=== PATIENT | male | born 1960 | race Hispanic/Latino ===

== ENCOUNTER 2018-11-20 07:30 | Observation (INO) | payer SELFPAY ==
[~2018-11-20] VITALS: Ht 170.2 cm; Wt 77.1 kg
--- NOTE | 2018-11-20 07:32 | NUR ---
20g rt ac x one, ekg done
--- NOTE | 2018-11-20 07:34 | NUR ---
to ct stat via w/c
--- NOTE | 2018-11-20 08:00 | Diagnostic Imaging Report ---
CT BRAIN WO HISTORY: Stroke COMPARISON: None. TECHNIQUE: Noncontrast axial scans were obtained from skull base to the vertex. Coronal and sagittal reconstructions obtained from the axial data. One or more of the following dose reduction techniques were used: Automated exposure control, adjustment of the mA and/or kV according to patient size, and/or utilization of iterative reconstruction technique. DISCUSSION: Scalp/Skull: Unremarkable. Brain sulci: Appropriate for patient's age. Ventricles: Normal in size and configuration. No hydrocephalus. Extra-axial spaces: No masses or fluid collections. Parenchyma: Mild periventricular white matter hypodensities are likely chronic microvascular ischemic changes. There is a punctate calcification in the right centrum semiovale. Otherwise, no mass, hemorrhage, or large vascular territory acute infarct. Dural sinuses: No abnormal densities. Sellar/Suprasellar region: Intact. Skull base: Intact. Incidental findings: Bilateral ethmoid air cell mucosal thickening is partially visualized. IMPRESSION: 1. No acute intracranial abnormalities. 2. Mild supratentorial chronic microvascular ischemic change. 3. Punctate right centrum semiovale calcification may be from remote infection or inflammation (i.e. neurocysticercosis). Signed by: Dr. Antony Benavides M.D. on 11/20/2018 7:56 AM
--- NOTE | 2018-11-20 08:01 | NUR ---
AFTER SPEAKING FURTHER WITH SON, PATIENT HAS HAD A STEADY DECLINE OVER PAST FEW MONTHS. SON WORKS OUT OF TOWN, 2 MONTHS AGO, HE NOTICED HIS DAD "WASN'T ALL THERE." SON STATES PATIENT LIVES WITH SISTER. PER SON, YESTERDAY, AFTER COMING BACK INTO TOWN, PATIENT WAS FOUND DOWN FOR UNKNOWN TIME. SON STATES HE ASKED HIS DAD (PATIENT) TO COME ER, HE REFUSED. THIS MORNING, HE STATES PATIENT WAS STARING AT HIM, BLANK, SO HE BROUGHT HIM IN FOR FURTHER EVALUATION.
[2018-11-20 08:14] LABS: INR 1.06; PROTHROMBIN TIME 14.3 seconds (11.9-14.5)
[2018-11-20 08:15] LABS: PARTIAL THROMBOPLASTIN TIME 31.7 seconds (23.8-35.5)
[2018-11-20 08:19] LABS: BASOPHILS % 0.4 % (0.0-1.0); EOSINOPHILS # (AUTO) 0.5 (0.0-0.4); EOSINOPHILS % 5.2 % (0.0-6.0); HEMATOCRIT 47.7 % (38.2-49.6); HEMOGLOBIN 14.9 g/dL (14.0-18.0); LYMPHOCYTES % 32.2 % (18.0-39.1); MEAN CORPUSCULAR HEMOGLOBIN 28.4 pg (28-32); MEAN CORPUSCULAR HGB CONC 31.2 g/dL (31-35); MEAN CORPUSCULAR VOLUME 90.9 fL (81-99); MONOCYTES # (AUTO) 0.9 (0.2-0.8); MONOCYTES % 9.3 % (4.4-11.3); NEUTROPHILS # (AUTO) 4.8 (2.1-6.9); NEUTROPHILS % 52.6 % (38.7-80.0); PLATELET COUNT 235 x10e3/uL (140-360); RED BLOOD COUNT 5.25 x10e6/uL (4.3-5.7); RED CELL DISTRIBUTION WIDTH 13.6 % (11.7-14.4)
[2018-11-20 08:24] LABS: ALANINE AMINOTRANSFERASE 43 IU/L (0-55); ALBUMIN 4.2 g/dL (3.5-5.0); ALBUMIN/GLOBULIN RATIO 1.4 (0.8-2.0); ALKALINE PHOSPHATASE 80 IU/L (40-150); ANION GAP 12.8 mmol/L (8-16); BLOOD UREA NITROGEN 21 mg/dL (7-26); BUN/CREATININE RATIO 24 (6-25); CALCIUM 9.4 mg/dL (8.4-10.2); CARBON DIOXIDE 25 mmol/L (22-29); CHLORIDE 105 mmol/L (98-107); CREATINE KINASE 996 IU/L (30-200); CREATININE, SERUM 0.86 mg/dL (0.72-1.25); EST GLOMERULAR FILTRATION RATE > 60 ML/MIN (60-); GLUCOSE 99 mg/dL (74-118); POTASSIUM 3.8 mmol/L (3.5-5.1); SODIUM 139 mmol/L (136-145)
--- NOTE | 2018-11-20 08:24 | NUR ---
cta brain to ct for testing
--- NOTE | 2018-11-20 09:45 | Diagnostic Imaging Report ---
CTA BRAIN HISTORY: Stroke COMPARISON: Head CT 11/20/2018 TECHNIQUE: CTA of the head was performed with intravenous iodine based contrast. Coronal, sagittal, and 3-D reformations were created. One or more of the following dose reduction techniques were used: Automated exposure control, adjustment of the mA and/or kV according to patient size, and/or utilization of iterative reconstruction technique. DISCUSSION: Carotid arteries: The intracranial internal carotid arteries are patent and without abnormality. No abnormalities in the A1 or M1 segments. Vertebrobasilar Circulation: Right vertebral artery: Patent, no abnormalities. Left vertebral artery: Patent, no abnormalities. Basilar artery: Patent, no abnormalities. Posterior cerebral arteries: Patent, no abnormalities. Normal Variants: ACom: Patent. PComs: Not clearly visualized. Vertebral arteries: Co-dominant. The major dural venous sinuses are grossly patent. Additional findings: Mild to moderate scattered bilateral paranasal sinus mucosal thickening. IMPRESSION: No intracranial CTA abnormalities. Signed by: Dr. Antony Benavides M.D. on 11/20/2018 9:34 AM
--- OUTSIDE RECORDS SUMMARY | 2018-11-20 09:48 | XMS REPORT ---
Author Author Admin, [place] Organization [facility] Address [address] [place] [address] Phone Allergies, Adverse Reactions, Alerts Allergy Name Reaction Description Start Date Severity Status Provider No Known Allergies Khushi Jasso CMA Conditions or Problems Problem Name Problem Code Onset Date Status Entry Date Provider Comment Standard Description Annotate Abnormal gait 781.2 Active Alejandro Jasso MD Abnormality of gait Hypothyroidism 244.9 Active Alejandro Jasso MD Unspecified hypothyroidism Prediabetes 790.29 Active Alejandro Jasso MD Other abnormal glucose Annual exam V70.0 Active Alejandro Jasso MD Routine general medical examination at a health care facility Elevated blood-pressure reading, without diagnosis of hypertension 796.2 Active Alejandro Jasso MD Elevated blood pressure reading without diagnosis of hypertension Nocturia 788.43 Active Alejandro Jasso MD Nocturia Vaccination Against Influenza V04.81 Inactive Alejandro Jasso MD Need for prophylactic vaccination and inoculation against influenza Vaccination Against Influenza ICD-V04.81 Inactive Alejandro Jasso MD Medication List Medication Instructions Start Date Stop Date Generic Name NDC Status Provider Patient Instruction DOXAZOSIN MESYLATE 4 MG ORAL TABLET take one tab By Mouth Every Day DOXAZOSIN MESYLATE 87704521683 Active Alejandro Jasso MD Active LEVOTHYROXINE SODIUM 100 MCG ORAL TABLET 1 by mouth daily LEVOTHYROXINE SODIUM 72145556366 Active Alejandro Jasso MD Active Immunizations Vaccine Administration Date Value Standard Description influenza immunization (Flu Vax) has been administered given influenza virus vaccine, unspecified formulation Vital Signs Date Name Value Unit Range Description blood pressure, diastolic 84 mm[Hg] BP vasquez blood pressure, systolic 136 mm[Hg] BP sys height E&M 64 [in_us] Bdy height pulse rate E&M 98 /min Heart rate respiratory rate E&M 20 /min Resp rate temperature E&M 98 [degF] Body temperature weight E&M 185 [lb_av] Weight Measured blood pressure, diastolic 77 mm[Hg] BP vasquez blood pressure, systolic 118 mm[Hg] BP sys height E&M 64 [in_us] Bdy height pulse rate E&M 97 /min Heart rate respiratory rate E&M 18 /min Resp rate temperature E&M 97.9 [degF] Body temperature weight E&M 189.60 [lb_av] Weight Measured blood pressure, diastolic 94 mm[Hg] BP vasquez blood pressure, systolic 137 mm[Hg] BP sys height E&M 64 [in_us] Bdy height pulse rate E&M 93 /min Heart rate respiratory rate E&M 16 /min Resp rate temperature E&M 98.5 [degF] Body temperature weight E&M 187.50 [lb_av] Weight Measured Diagnostic Results Date Name Value Unit Range Description Lab Report: TSH - Chemistry thyroid stimulating hormone, serum 0.873 u[iU]/mL 0.450-4.500 Lab Report: CBC With Differential/Platelet, Comp. Metabolic Panel (14), ... - Chemistry very low density lipoproteins 24 mg/dL 5-40 chloride, serum 100 mmol/L 96-106 urea nitrogen, blood 26 mg/dL 6-24 Lab Report: CBC With Differential/Platelet, Comp. Metabolic Panel (14), ... - Urinalysis leukocyte esterase, urine, by dipstick Negative Negative Lab Report: CBC With Differential/Platelet, Comp. Metabolic Panel (14), ... - Hematology mean corpuscular hemoglobin concentration, RBC 32.6 G/DL % 31.5-35.7 erythrocyte (RBC) count 5.11 X10E6/UL 10*6/mm3 4.14-5.80 Lab Report: CBC With Differential/Platelet, Comp. Metabolic Panel (14), ... - Urinalysis urine color Yellow Yellow Lab Report: CBC With Differential/Platelet, Comp. Metabolic Panel (14), ... - Chemistry Absolute Neutrophils 5.4 X10E3/UL 10*3/uL 1.4-7.0 Lab Report: CBC With Differential/Platelet, Comp. Metabolic Panel (14), ... - Urinalysis bilirubin, urine Negative Negative Lab Report: CBC With Differential/Platelet, Comp. Metabolic Panel (14), ... - Chemistry LDL cholesterol, serum 134 mg/dL 0-99 urea nitrogen/creatinine ratio, serum 29 9-20 Lab Report: CBC With Differential/Platelet, Comp. Metabolic Panel (14), ... - Hematology mean corpuscular volume, RBC 91 fL 79-97 Lab Report: CBC With Differential/Platelet, Comp. Metabolic Panel (14), ... - Chemistry HDL cholesterol, serum 50 mg/dL >39 Lab Report: CBC With Differential/Platelet, Comp. Metabolic Panel (14), ... - Hematology monocytes as percent of blood leukocytes 8 % Not Estab. Lab Report: CBC With Differential/Platelet, Comp. Metabolic Panel (14), ... - Chemistry albumin/globulin ratio, serum 1.8 1.2-2.2 creatinine, serum 0.90 mg/dL 0.76-1.27 cholesterol, serum 208 mg/dL 422-149 9979/11/01 bilirubin, serum, total 0.3 mg/dL 0.0-1.2 Lab Report: CBC With Differential/Platelet, Comp. Metabolic Panel (14), ... - Hematology Eosinophil Absolute Count 0.3 X10E3/UL 10*3/uL 0.0-0.4 Lab Report: CBC With Differential/Platelet, Comp. Metabolic Panel (14), ... - Urinalysis appearance, urine Clear Clear Lab Report: CBC With Differential/Platelet, Comp. Metabolic Panel (14), ... - Chemistry aspartate aminotransferase (SGOT), serum 30 U/L 0-40 B-12, serum 925 pg/mL 232-1245 Lab Report: CBC With Differential/Platelet, Comp. Metabolic Panel (14), ... - Hematology red blood cell distribution width 13.9 % 12.3-15.4 Lab Report: CBC With Differential/Platelet, Comp. Metabolic Panel (14), ... - Urinalysis urinalysis, microscopic examination MICNIP Lab Report: CBC With Differential/Platelet, Comp. Metabolic Panel (14), ... - Hematology leukocyte count, blood 8.6 X10E3/UL 10*3/mm3 3.4-10.8 Lab Report: CBC With Differential/Platelet, Comp. Metabolic Panel (14), ... - Urinalysis pH, urine, semiquantitative 5.5 5.0-7.5 Lab Report: CBC With Differential/Platelet, Comp. Metabolic Panel (14), ... - Chemistry potassium, serum 4.2 mmol/L 3.5-5.2 albumin, serum 4.6 g/dL 3.5-5.5 immature granulocytes, percentage of total cells, blood 0 % Not Estab. Lab Report: CBC With Differential/Platelet, Comp. Metabolic Panel (14), ... - Hematology lymphocyte count, blood, automated 2.2 X10E3/UL 10*3/mm3 0.7-3.1 hematocrit, blood 46.6 % 37.5-51.0 Lab Report: CBC With Differential/Platelet, Comp. Metabolic Panel (14), ... - Chemistry sodium, serum 144 mmol/L 134-144 Lab Report: CBC With Differential/Platelet, Comp. Metabolic Panel (14), ... - Hematology neutrophils as percent of blood leukocytes 63 % Not Estab. basophils as percent of blood leukocytes 0 % Not Estab. Lab Report: CBC With Differential/Platelet, Comp. Metabolic Panel (14), ... - Chemistry folate, serum >19.9 ng/mL ng/mL >3.0 specific gravity, body fluid 1.029 1.005-1.030 Lab Report: CBC With Differential/Platelet, Comp. Metabolic Panel (14), ... - Urinalysis protein, urine, semiquantitative (dipstick) Trace Negative/Trace Lab Report: CBC With Differential/Platelet, Comp. Metabolic Panel (14), ... - Chemistry carbon dioxide, venous blood 25 mmol/L 20-29 nitrate, urine Negative Negative triglyceride, serum, fasting 120 mg/dL 0-149 calcium, serum 9.7 mg/dL 8.7-10.2 alanine aminotransferase (SGPT), serum 49 U/L 0-44 Lab Report: CBC With Differential/Platelet, Comp. Metabolic Panel (14), ... - Hematology mean corpuscular hemoglobin, RBC 29.7 pg 26.6-33.0 Lab Report: CBC With Differential/Platelet, Comp. Metabolic Panel (14), ... - Chemistry protein, total, serum 7.1 g/dL 6.0-8.5 alkaline phosphatase, serum 81 U/L 39-117 Lab Report: CBC With Differential/Platelet, Comp. Metabolic Panel (14), ... - Hematology hemoglobin, blood 15.2 g/dL 13.0-17.7 lymphocytes as percent of blood leukocytes 26 % Not Estab. Office Visit: Annual / Family Planning Male - Chemistry hemoglobin A1C, blood, as % of total hemoglobin 5.8 % Lab Report: CBC With Differential/Platelet, Comp. Metabolic Panel (14), ... - Urinalysis glucose, urine, semiquantitative Negative Negative Lab Report: CBC With Differential/Platelet, Comp. Metabolic Panel (14), ... - Genetics/fertility eGFR if 108 mL/min/1.73m2 >59 Lab Report: CBC With Differential/Platelet, Comp. Metabolic Panel (14), ... - Hematology basophil count, absolute 0.0 x10E3/uL 0.0-0.2 Lab Report: CBC With Differential/Platelet, Comp. Metabolic Panel (14), ... - Chemistry globulin, serum 2.5 1.5-4.5 Estimated Glomerular Filtration Rate (calc) 93 mL/min/1.73m2 >59 Lab Report: CBC With Differential/Platelet, Comp. Metabolic Panel (14), ... - Basic Occult Blood, urine Negative Negative Lab Report: CBC With Differential/Platelet, Comp. Metabolic Panel (14), ... - Hematology eosinophils as percent of blood leukocytes 3 % Not Estab. Lab Report: CBC With Differential/Platelet, Comp. Metabolic Panel (14), ... - Chemistry blood glucose, random 103 mg/dL 65-99 Lab Report: CBC With Differential/Platelet, Comp. Metabolic Panel (14), ... - Urinalysis urobilinogen, urine, semiquantitative (dipstick) 0.2 0.2-1.0 Lab Report: PSA, Serum (Serial Monitor) - Chemistry prostate specific antigen 0.8 ng/mL 0.0-4.0 Lab Report: CBC With Differential/Platelet, Comp. Metabolic Panel (14), ... - Hematology monocyte count, blood, automated 0.7 X10E3/UL 10*3/uL 0.1-0.9 platelet count 229 X10E3/UL 10*3/mm3 150-379 Lab Report: CBC With Differential/Platelet, Comp. Metabolic Panel (14), ... 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
--- OUTSIDE RECORDS SUMMARY | 2018-11-20 09:48 | XMS REPORT ---
Author Author [facility] Address Unknown Phone Unavailable Care Team Providers Care Generation Manager Name Role Phone Kira MONTERROSO Unavailable Unavailable Problems This patient has no known problems. Allergies, Adverse Reactions, Alerts This patient has no known allergies or adverse reactions. Medications This patient has no known medications. Results Test Description Test Time Test Comments Text Results Atomic Results Result Comments CTA BRAIN 2018-11-20 09:27:00 [place] [address] Patient Name: BELKYS AMARAL MR #: [id number] : 1960 Age/Sex: 58/M Req #: [id number] Adm Physician: Ordered by: CARMINE MONTERROSO MD Report #: [id number] Location: ER Room/Bed: Procedure: [id number] CT/CTA BRAIN Exam Date: Exam Time: REPORT STATUS: Signed CTA BRAIN HISTORY: Stroke COMPARISON: Head CT 11/20/2018 TECHNIQUE: CTA of the head was performed with intravenous iodine based contrast. Coronal, sagittal, and 3-D reformations were created. One or more of the following dose reduction techniques were used: Automated exposure control, adjustment of the mA and/or kV according to patient size, and/or utilization of iterative reconstruction technique. DISCUSSION: Carotid arteries: The intracranial internal carotid arteries are patent and without abnormality. No abnormalities in the A1 or M1 segments. Vertebrobasilar Circulation: Right vertebral artery: Patent, no abnormalit ies. Left vertebral artery: Patent, no abnormalities. Basilar artery: Patent, no abnormalities. Posterior cerebral arteries: Patent, no abnormalities. Normal Variants: ACom: Patent. PComs: Not clearly visualized. Vertebral arteries: Co-dominant. The major dural venous sinuses are grossly patent. Additional findings: Mild to moderate scattered bilateral paranasal sinus mucosal thickening. IMPRESSION: No intracranial CTA abnormalities. Signed by: Dr. Antony Padron M.D. on 11/20/2018 9:34 AM Dictated By: ANTONY PADRON MD 3 Transcribed By: KELLIE on 11/20/18933 COPY TO: CARMINE MONTERROSO MD CT BRAIN WO 2018-11-20 07:53:00 [place] [address] Patient Name: BELKYS AMARAL MR #: [id number] : 1960 Age/Sex: 58/M Req #: [id number] Adm Physician: Ordered by: CARMINE MONTERROSO MD Report #: [id number] Location: Room/Bed: Procedure: [id number] CT/CT BRAIN WO Exam Date: 11/20/18 Exam Time: 729 REPORT STATUS: Signed CT BRAIN WO HISTORY: Stroke COMPARISON: None. TECHNIQUE: Noncontrast axial scans were obtained from skull base to the vertex. Coronal and sagittal reconstructions obtained from the axial data. One or more of the following dose reduction techniques were used: Automated exposure control, adjustment of the mA and/or kV according to patient size, and/or utilization of iterative reconstruction technique. DISCUSSION: Scalp/Skull: Unremarkable. Brain sulci: Appropriate for patient's age. Ventricles: Normal in size and configuration. No hydrocephalus. Extra-axial spaces: No masses or fluid collections. Parenchyma: Mild periventricular white matter hypodensities are likely chronic microvascular ischemic changes. There is a punctate calcification in the right centrum semiovale. Otherwise, no mass, hemorrhage, or large vascular territory acute infarct. Dural sinuses: No abnormal densities. Sellar/Suprasellar region: Intact. Skull base: Intact. Incidental findings: Bilateral ethmoid air cell mucosal thickening is partially visualized. IMPRESSION: 1. No acute intracranial abnormalities. 2. Mild supratentorial chronic microvascular ischemic change. 3. Punctate right centrum semiovale calcification may be from remote infection or inflammation (i.e. neurocysticercosis). Signed by: Dr. Antony Padron M.D. on 11/20/2018 7:56 AM Dictated By: ANTONY PADRON MD [id number] Transcribed By: KELLIE on 11/20/18 0756 COPY TO: CARMINE MONTERROSO MD
[2018-11-20 10:14] LABS: BILIRUBIN,URINE NEGATIVE (NEGATIVE); CLARITY,URINE CLEAR (CLEAR); COLOR,URINE YELLOW (YELLOW); KETONES,URINE NEGATIVE (NEGATIVE); LEUKOCYTE ESTERASE ,URINE NEGATIVE (NEGATIVE); NITRITE,URINE NEGATIVE (NEGATIVE); PROTEIN,URINE DIPSTICK NEGATIVE (NEGATIVE); URINE UROBILINOGEN 0.2 mg/dL (0.2 - 1)
[2018-11-20 10:35] LABS: EPITHELIAL CELLS,URINE RARE /LPF; RENAL EPITHELIAL CELLS,URINE RARE
--- NOTE | 2018-11-20 10:50 | NUR ---
PER MD CAROTID DOPPLER DONE AND NEGATIVE
--- NOTE | 2018-11-20 11:09 | NUR ---
CALLED [employer] PER ER MD REQUEST.
--- NOTE | 2018-11-20 11:17 | NUR ---
sPOKE WITH SON AGAIN REGARDING PATIENT GAIT; SON STATES PATIENT GAIT IS MILDLY UNSTEADY DUE TO A CHRONIC "BREAK" IN THE PAST THAT PATIENT NEVER SEEKED MEDICAL ATTENTION. PATIENT ABLE TO AMBULATED WITH ASSISTANCE AND WAS ABLE TO AMBULATE FROM PARKING LOT UPON ARRIVAL TO ED.
[2018-11-20] MEDS ORDERED: IOPAMIDOL 370 MG/ML 200 ML INFUS..BTL INJ ONE (11:27)
[2018-11-20] MEDS ORDERED: SODIUM CHLORIDE 0.9% 100 ML 100 ML ONE (11:27)
--- NOTE | 2018-11-20 11:40 | NUR ---
SPOKE WITH FAMILY GAVE SELF PAY PACKET TO FOLLOW UP IN COMMUNITY, GAVE RESOURCES FOR [employer] TO FOLLOW UP TO SEE IF HE WILL BE ABLE TO GET ASSISTANCE WITH THE DISABILITY PROCESS. GAVE SENIOR RESOURCES FOR AVAILABLE COMPANIES THAT GIVE ASSISTANCE WITH DIFFERENT LEVELS OF CARE. CALLED JITENDRA WITH [facility] AND ALERTED TO PT PRESENCE IN ED TO SEE IF SHE CAN BE OF ASSISTANCE. SON AWARE OF THE OPPORTUNITIES AND WILL FOLLOW UP TO HELP HIS FATHER GET BENEFITS.
[2018-11-20] MEDS ORDERED: SODIUM CHLORIDE 0.9% 1000ML 1,000 ML IV STA (11:55)
[2018-11-20] MEDS ORDERED: ASPIRIN 81 MG CHEW TAB PO ONE (12:15)
--- NOTE | 2018-11-20 14:00 | NUR ---
RECEIVED TO RM AAXO2, DENIES PAIN, PT IS TAJIK SPEAKING ONLY, SON AT BEDSIDE ANSWERING QUESTIONS. IVF INFUSING TO L AC 20G NO SS OF INFILTRATION NOTED, EDEMA NOTED TO SCROTUM DENIES PAIN, NO OTHER CO VOICED, ORIENTED TO RM, CALL LIGHT IN REACH WILL CONTINUE TO MONITOR
[2018-11-20 14:50] VITALS: BP 131/77
--- NOTE | 2018-11-20 16:41 | Diagnostic Imaging Report ---
Exam: Lumbar spine AP lateral History: Back pain Comparison: None. Findings: No fracture or malalignment. Mild degenerative disc disease L5-S1. No abnormal soft tissue calcification or soft tissue defect. Impression: No acute osseous abnormality Signed by: Dr. Rey Jarquin M.D. on 11/20/2018 4:37 PM
--- NOTE | 2018-11-20 16:43 | Diagnostic Imaging Report ---
EXAMINATION: PA and lateral views of the chest. COMPARISON: None CLINICAL HISTORY: Fall DISCUSSION: Lines/tubes: None. Lungs: The lungs are well inflated and clear. No pneumonia or pulmonary edema. Pleura: No pleural effusion or pneumothorax. Heart and mediastinum: The cardiomediastinal silhouette is normal. Bones and soft tissues: No acute bony abnormalities. IMPRESSION: No acute cardiopulmonary abnormalities. Signed by: Dr. Rey Jarquin M.D. on 11/20/2018 4:40 PM
--- NOTE | 2018-11-20 17:00 | NUR ---
SPOKE WITH DR MILLER RE: PT CONSULT, MRI RESULTS GIVEN. INFORMED NURSE TO NOTIFY DR DUMONT, NO NEED TO SEE PT NO STROKE NOTED PER MRI. CAN SEE PT ON AN OUTPATIENT BASIS, DR DUMONT PAGED AWAITING CALL BACK
--- NOTE | 2018-11-20 17:04 | Diagnostic Imaging Report ---
PROCEDURE:TESTICULAR ULTRASOUND COMPARISON:None. INDICATIONS:ENLARGED TESTICLE TECHNIQUE: Mcintosh-scale and color Doppler images of the testicles and scrotal contents were obtained. Duplex imaging with spectral waveform analysis was performed of the testicular arteries and veins. FINDINGS: RIGHT SCROTUM: Testicle: Measures 3.3 x 1.3 x 2.6 cm. Normal blood flow to the right testes. Epididymal head: Measures 0.7 x 0.7 x 1.0 cm. Hydrocele: Small hydrocele. Varicocele: Small varicocele. LEFT SCROTUM: Testicle: Measures 4.8 x 2.7 x 3.0 cm. Normal blood flow to the left testes. Epididymal head: Measures 1.2 x 0.5 x 0.8 cm. Small epididymal cysts. Hydrocele: Small hydrocele present. Varicocele: None There is massive enlargement of the scrotum without discernible peristalsis likely represents a large hernia. CONCLUSION: 1. Normal appearing testes with blood flow present. 2. Small bilateral hydroceles. 3. Small right varicocele. 4. Massive scrotal enlargement. Michael Marcelino D.O. Dictated by: Michael Marcelino D.O. on 11/20/2018 at 17:07 Electronically approved by: Michael Marcelino D.O. on 11/20/2018 at 17:07
--- NOTE | 2018-11-20 17:06 | Diagnostic Imaging Report ---
EXAMINATION: CT of the abdomen and pelvis without contrast. TECHNIQUE: Helical CT images of the abdomen and pelvis were performed from the lung bases to the lesser trochanters. No intravenous contrast was given per renal stone protocol. Coronal and sagittal reformatted images were obtained.Dose modulation, iterative reconstruction, and/or weight based adjustment of the mA/kV was utilized to reduce the radiation dose to as low as reasonably achievable. COMPARISON: None. CLINICAL HISTORY:Dementia, weakness DISCUSSION: ABSENCE OF INTRAVENOUS CONTRAST DECREASES SENSITIVITY FOR DETECTION OF FOCAL LESIONS AND VASCULAR PATHOLOGY. ABDOMEN/PELVIS: LOWER THORAX: Unremarkable. HEPATOBILIARY:No focal hepatic lesions. No biliary ductal dilation. The gallbladder is normal. SPLEEN: No splenomegaly. PANCREAS: No focal masses or ductal dilatation. ADRENALS: No adrenal nodules. KIDNEYS/URETERS: No hydronephrosis, stones, or solid mass lesions. PELVIC ORGANS/BLADDER: The bladder is normal. PERITONEUM/RETROPERITONEUM: No free air or fluid. LYMPH NODES: No intra-abdominal,retroperitoneal, pelvic or inguinal lymphadenopathy. VESSELS: Unremarkable. GI TRACT: No obstruction. Appendix normal. BONES AND SOFT TISSUES: Fat-containing left inguinal hernia and colon containing right inguinal hernia. IMPRESSION: Large right colon containing internal hernia. No complication. Signed by: Dr. Rey Jarquin M.D. on 11/20/2018 5:03 PM
[2018-11-20 17:09] VITALS: BP 128/91
--- NOTE | 2018-11-20 17:23 | Diagnostic Imaging Report ---
Examination: Brain MRI without Contrast History: Dementia. Memory loss Comparison studies: None. Technique: Precontrast: Hi resolution Sag T1 with coronal and axial reformats. Axial DWI, T2, T2 flair, gradient echo or SWI Intravenous contrast: None. Findings: Structural lesions: No intra-or extra-axial masses. No hematomas. Atrophy: General: Symmetric and age appropriate. Focal: No disproportionate lobar, hippocampal, mesencephalic, pontine, or cerebellar atrophy. Mcintosh matter: Cortex:No signal abnormalities. No encephalomalacia. Basal ganglia: No atrophy or signal abnormalities. Thalami: No signal abnormalities. Micro hemorrhages: None. White matter signal intensity: There are scattered punctate areas of T2/FLAIR hyperintensity in the periventricular and subcortical white matter, nonspecific. Comparison Subarachnoid spaces: No signal abnormalities. Ventricles: Normal in size and configuration. No hydrocephalus. Hippocampi, fornix and mammillary bodies: Normal in size and symmetric. Other: Skull: No bone marrow abnormalities. Vessels: Expected flow voids present in the major arteries and dural sinuses.. Sella: Normal in size. No intra-or suprasellar abnormalities. Cranio-cervical junction: No abnormalities. Patent foramen magnum. No Chiari one malformation. Paranasal sinuses: Moderate inflammatory mucosal thickening of the bilateral maxillary sinuses and ethmoid air cells. IMPRESSION: 1. No disproportionate lobar volume loss or hippocampal atrophy. 2. Minimal chronic microvascular ischemic change. 3. No acute intracranial abnormality. Signed by: Dr. Shreya Joyner M.D. on 11/20/2018 5:20 PM
[2018-11-20 17:54] LABS: CREATINE KINASE MB 4.6 ng/mL (0-5.0)
--- NOTE | 2018-11-20 19:12 | NUR ---
WALKING ROUNDS PERFORMED, RECEIVED PT LAYING SEMI FOWLERS IN BED, AAOX2, RR EVEN AND NON-LABORED, ON RA. NO S/SX OF DISTRESS NOTED. LEFT PT LAYING SEMI FOWLERS IN BED, BED IN LOW LOCKED POSITION, SIDE RAILS UPX2, CALL LIGHT AND PHONE WITHIN REACH. FAMILY AT BEDSIDE.
[2018-11-20 20:00] VITALS: BP 125/93
[2018-11-20 20:01] VITALS: BP 125/93
[2018-11-20] MEDS: SODIUM CHLORIDE 0.9% 1000ML 1,000 ML IV SCH ×2 (21:18→22:50)
--- NOTE | 2018-11-20 22:14 | History and Physical ---
CHIEF COMPLAINT: Difficulty walking and fall. HISTORY OF PRESENT ILLNESS: A 58-year-old male, who had no medical history other than progressive dementia and left ankle problem. The patient basically came in because he was having problem with progressively worsening memory loss and also left-sided weakness. The patient's preliminary workup including the CTA of the brain and CT scan of the brain otherwise negative. The patient is otherwise stable. On examination, the patient does have an enlarged scrotal swelling. That is nontender. Per the patient, it has been going on for years. PAST MEDICAL HISTORY: Progressive memory loss, dementia. Left ankle injury remotely with progressive difficulty with walking and fall. SOCIAL HISTORY: The patient lives at home with his family. He does not smoke or use alcohol. No recreational drugs. ALLERGIES: NO KNOWN ALLERGIES. HOME MEDICATIONS: None. PHYSICAL EXAMINATION: VITAL SIGNS: Temperature is 98, blood pressure 114/70, pulse rate is 94, and respirations 18. GENERAL: The patient is not in acute distress. He is awake. HEENT: Normocephalic, atraumatic. Anicteric. NECK: Supple grossly. PULMONARY: Clear. CARDIOVASCULAR: Regular rate and rhythm. ABDOMEN: Soft. Scrotal swelling. EXTREMITIES: No cyanosis or edema. NEUROLOGIC: No focal deficits grossly on lying in bed. Gait is not assessed. LABORATORY DATA: Sodium is 139, potassium 3.8, chloride 105, bicarb 25, BUN 21, creatinine 0.8, and glucose 99. WBC is 9.1, hemoglobin 14.9, hematocrit 47.7, and platelets 235. IMPRESSION: 1. Difficulty walking with recurrent fall. This could be secondary to musculoskeletal in origin given the fact of his left ankle problem, but also the patient has dementia and therefore difficult to assess. 2. Severe scrotal swelling. 3. Progressively memory loss could be secondary to dementia. PLAN: Obtain MRI of the brain without contrast. Lumbar spine x-ray. PT/OT. Check thyroid function test. Continue to monitor the patient closely at this time. MD STACIE Finley/CATHERINE /[id number]
[2018-11-21] VITALS: BP 120/95
[2018-11-21 01:43] LABS: CREATINE KINASE 424 IU/L (30-200)
[2018-11-21 04:00] VITALS: BP 132/88
[2018-11-21 05:21] LABS: BASOPHILS % 0.5 % (0.0-1.0); EOSINOPHILS # (AUTO) 0.4 (0.0-0.4); EOSINOPHILS % 4.6 % (0.0-6.0); HEMATOCRIT 44.3 % (38.2-49.6); HEMOGLOBIN 14.4 g/dL (14.0-18.0); LYMPHOCYTES # (AUTO) 2.4 (1.0-3.2); LYMPHOCYTES % 29.7 % (18.0-39.1); MEAN CORPUSCULAR HGB CONC 32.5 g/dL (31-35); MEAN CORPUSCULAR VOLUME 89.1 fL (81-99); MONOCYTES # (AUTO) 0.9 (0.2-0.8); MONOCYTES % 10.8 % (4.4-11.3); NEUTROPHILS # (AUTO) 4.4 (2.1-6.9); NEUTROPHILS % 54.2 % (38.7-80.0); PLATELET COUNT 214 x10e3/uL (140-360); RED BLOOD COUNT 4.97 x10e6/uL (4.3-5.7); RED CELL DISTRIBUTION WIDTH 13.6 % (11.7-14.4)
[2018-11-21] MEDS: SODIUM CHLORIDE 0.9% 1000ML 1,000 ML IV SCH (05:34)
[2018-11-21 05:40] LABS: BLOOD UREA NITROGEN 13 mg/dL (7-26); BUN/CREATININE RATIO 15 (6-25); CALCIUM 9.1 mg/dL (8.4-10.2); CARBON DIOXIDE 27 mmol/L (22-29); CHLORIDE 109 mmol/L (98-107); CREATININE, SERUM 0.85 mg/dL (0.72-1.25); EST GLOMERULAR FILTRATION RATE > 60 ML/MIN (60-); GLUCOSE 93 mg/dL (74-118); SODIUM 141 mmol/L (136-145)
[2018-11-21 05:57] LABS: CREATINE KINASE 351 IU/L (30-200)
[2018-11-21 08:31] VITALS: BP 122/93
[2018-11-21 10:00] VITALS: BP 122/93
--- NOTE | 2018-11-21 10:17 | NUR ---
PER DR DUMONT CANMARIAJOSE ECHO, NO NEED FOR TEST AT THIS TIME
--- NOTE | 2018-11-22 01:14 | Discharge Summary ---
The patient was placed on observation. The patient is on unassigned call, assigned to my service. FINAL DIAGNOSES: 1. Baseline dementia. Workup, there is no acute injury to the brain. No stroke. 2. Chronic scrotal swelling. 3. Chronic large right colon containing inguinal hernia. No complication. 4. Baseline musculoskeletal problem of the left lower extremity and ankle area with baseline walking with a walker with recurrent fall. SUMMARY: This is a 58 years old male with dementia, came into the hospital because he had recurrent fall. Apparently, he has left ankle injury in the past and he is walking with a walker at home, but had recurrent fall due to the progressive decline of his left ankle. Because he is demented, not much history was able to obtain. Therefore, the patient was placed on observation and multiple workup was done. Carotid Doppler was otherwise unremarkable. The patient had other tests as well including as follow: Had abdominal pelvic CT, chest x-ray, brain MRI, head CTA, brain CT, Doppler study and testicular ultrasound and findings as mentioned. There was no acute finding on all those tests that was done. Discussed with the patient and family at length. The patient apparently was applied for a [employer] with [facility] [place], but because his spouse make too much money, he was not qualified. I advised the patient to follow up again with the [facility] to apply for a [employer] reapply for a visit with basis on income. Discussed with the patient and daughter at length in the room regarding his overall health status. Suggest that he need to follow up with his urologist and a general surgeon for a noncomplicated hernia and scrotal swelling. I also advised the patient's family, daughter particularly to take the patient for an outpatient neurology consultation for dementia workup. Overall, the patient is stable. There is no acute problem that will be take care of in the hospital at this time. I suggest the patient's family to obtain all medical records including extensive imaging tests that were already done. Therefore, no need to repeat. The patient is otherwise stable, discharged home today. No medication needed. MD STACIE Finley/CATHERINE /[id number]
== END 2018-11-21 10:55 | disposition home or self-care (01) ==
LOC: ER 07:30 → INTOOBSV 12:26 → ERHOLD 12:26 → MED/SURG 14:19
PROVIDERS: ADMIT Internal Medicine; ATTEND Internal Medicine
DX: G30.0 Alzheimer's disease with early onset (principal); F02.81 Dementia in other diseases classified elsewhere, unspecified severity, with behavioral disturbance; N50.89 Other specified disorders of the male genital organs; Z91.81 History of falling; K40.90 Unilateral inguinal hernia, without obstruction or gangrene, not specified as recurrent; S96.89 Other specified injury of other specified muscles and tendons at ankle and foot level
CPT/HCPCS: 36415; 70450; 70496; 70551; 71046; 72100; 74176; 76870; 80048; 80053; 81001; 82550 ×2; 82553 ×2; 82948; 83880; 84484 ×2; 85025 ×2; 85610; 85730; 93005; 93880; 93976; 97116; 97161; 99284; G0378 ×2; J7030 ×2; Q9967

== ENCOUNTER 2021-12-15 22:00 | Inpatient (IN) | payer MEDICAID ==
[~2021-12-15] VITALS: Ht 160 cm; Wt 43.1 kg
[2021-12-15] MEDS ORDERED: SODIUM CHLORIDE 0.9% 1000ML 1,000 ML IV STA ×2 (22:28→22:48)
[2021-12-15] MEDS ORDERED: ACETAMINOPHEN 1000 MG/100 ML IV STA (22:48)
[2021-12-15 23:04] LABS: BASOPHILS % 0.4 % (0.0-1.0); EOSINOPHILS % 0.1 % (0.0-6.0); HEMATOCRIT 51.7 % (38.2-49.6); HEMOGLOBIN 15.6 g/dL (14.0-18.0); LYMPHOCYTES # (AUTO) 1.5 (1.0-3.2); LYMPHOCYTES % 18.2 % (18.0-39.1); MEAN CORPUSCULAR HEMOGLOBIN 28.9 pg (28-32); MEAN CORPUSCULAR HGB CONC 30.2 g/dL (31-35); MEAN CORPUSCULAR VOLUME 95.9 fL (81-99); MONOCYTES # (AUTO) 0.6 (0.2-0.8); MONOCYTES % 7.7 % (4.4-11.3); NEUTROPHILS % 73.4 % (38.7-80.0); PLATELET COUNT 241 x10e3/uL (140-360); RED BLOOD COUNT 5.39 x10e6/uL (4.3-5.7); RED CELL DISTRIBUTION WIDTH 14.6 % (11.7-14.4)
[2021-12-15 23:17] LABS: ALANINE AMINOTRANSFERASE 24 IU/L (0-55); ALBUMIN 3.7 g/dL (3.5-5.0); ALBUMIN/GLOBULIN RATIO 0.9 (0.8-2.0); ALKALINE PHOSPHATASE 70 IU/L (40-150); ANION GAP 20.7 mmol/L (8-16); BLOOD UREA NITROGEN 48 mg/dL (7-26); BUN/CREATININE RATIO 42 (6-25); CALCIUM 10.3 mg/dL (8.4-10.2); CARBON DIOXIDE 24 mmol/L (22-29); CHLORIDE 117 mmol/L (98-107); CREATINE KINASE 419 IU/L (30-200); CREATININE, SERUM 1.15 mg/dL (0.72-1.25); GLUCOSE 104 mg/dL (74-118); POTASSIUM 3.7 mmol/L (3.5-5.1); SODIUM 158 mmol/L (136-145)
[2021-12-15 23:25] LABS: CLARITY,URINE CLOUDY (CLEAR); COLOR,URINE AMBER (YELLOW); LEUKOCYTE ESTERASE ,URINE NEGATIVE (NEGATIVE); NITRITE,URINE NEGATIVE (NEGATIVE); PROTEIN,URINE DIPSTICK 2+ (NEGATIVE)
[2021-12-15 23:26] LABS: KETONES,URINE 1+ (NEGATIVE); URINE UROBILINOGEN 1 mg/dL (0.2 - 1)
[2021-12-15 23:50] LABS: BACTERIA,URINE FEW /HPF; EPITHELIAL CELLS,URINE FEW /LPF
[2021-12-15 23:51] LABS: MUCUS,URINE MANY (RARE)
[2021-12-16] VITALS (8 sets, daily range): BP systolic 121–137; BP diastolic 81–92
[2021-12-16] MEDS: SODIUM CHLORIDE 0.9% 1000ML 1,000 ML IV SCH ×2 (03:06→12:53)
[2021-12-16 08:44] LABS: CREATINE KINASE 277 IU/L (30-200)
[2021-12-16] MEDS ORDERED: ACETAMINOPHEN 325 MG TAB PO PRN (17:00)
[2021-12-16] MEDS ORDERED: ONDANSETRON HCL INJ 2MG/ML 2ML 2 MG/ML VIAL IV PRN (17:00)
[2021-12-16] MEDS ORDERED: SODIUM CHLORIDE 0.45% 1,000 ML IV ONE (17:00)
[2021-12-16 18:07] LABS: CREATINE KINASE 213 IU/L (30-200)
[2021-12-16] MEDS ORDERED: SODIUM CHLORIDE 0.45% 1,000 ML ONE (20:20)
[2021-12-17] VITALS (12 sets, daily range): BP systolic 117–140; BP diastolic 72–83
[2021-12-17 06:35] LABS: BASOPHILS % 0.4 % (0.0-1.0); EOSINOPHILS # (AUTO) 0.1 (0.0-0.4); EOSINOPHILS % 1.4 % (0.0-6.0); HEMATOCRIT 40.4 % (38.2-49.6); HEMOGLOBIN 12.7 g/dL (14.0-18.0); LYMPHOCYTES # (AUTO) 2.1 (1.0-3.2); MEAN CORPUSCULAR HEMOGLOBIN 29.5 pg (28-32); MEAN CORPUSCULAR HGB CONC 31.4 g/dL (31-35); MONOCYTES # (AUTO) 0.6 (0.2-0.8); MONOCYTES % 7.4 % (4.4-11.3); NEUTROPHILS # (AUTO) 4.9 (2.1-6.9); NEUTROPHILS % 63.5 % (38.7-80.0); PLATELET COUNT 175 x10e3/uL (140-360); RED CELL DISTRIBUTION WIDTH 14.3 % (11.7-14.4)
[2021-12-17 06:55] LABS: ALBUMIN 2.6 g/dL (3.5-5.0); ALBUMIN/GLOBULIN RATIO 0.8 (0.8-2.0); CALCIUM 8.3 mg/dL (8.4-10.2); CREATININE, SERUM 0.7 mg/dL (0.72-1.25)
[2021-12-17 08:22] LABS: MAGNESIUM 1.9 MG/DL (1.3-2.1); PHOSPHORUS 2.5 MG/DL (2.3-4.7)
[2021-12-17] MEDS ORDERED: POTASSIUM CHLORIDE 20 MEQ TAB CR PO ONE (11:52)
[2021-12-17] MEDS ORDERED: POTASSIUM CHLORIDE 20MEQ/100ML 100 ML IV ONE (14:30)
[2021-12-18] VITALS (8 sets, daily range): BP systolic 96–123; BP diastolic 71–80
[2021-12-18 06:33] LABS: ANION GAP 15.2 mmol/L (8-16); CALCIUM 8.2 mg/dL (8.4-10.2); CREATININE, SERUM 0.69 mg/dL (0.72-1.25); MAGNESIUM 1.9 MG/DL (1.3-2.1); PHOSPHORUS 2.6 MG/DL (2.3-4.7); POTASSIUM 3.2 mmol/L (3.5-5.1)
[2021-12-18] MEDS: SODIUM CHLORIDE 0.45% 1,000 ML IV SCH (14:52)
[2021-12-18 18:38] LABS: CLARITY,URINE TURBID (CLEAR); COLOR,URINE AMBER (YELLOW); KETONES,URINE 1+ (NEGATIVE); LEUKOCYTE ESTERASE ,URINE NEGATIVE (NEGATIVE); NITRITE,URINE NEGATIVE (NEGATIVE); PROTEIN,URINE DIPSTICK 2+ (NEGATIVE); URINE UROBILINOGEN 4 mg/dL (0.2 - 1)
[2021-12-18 18:48] LABS: BACTERIA,URINE MODERATE /HPF; RBC,URINE >50 /HPF (0-5)
[2021-12-19] VITALS (7 sets, daily range): BP systolic 106–133; BP diastolic 80–88
[2021-12-19] MEDS: SODIUM CHLORIDE 0.45% 1,000 ML IV SCH ×3 (00:14→21:24)
[2021-12-19] MEDS: DOCUSATE SODIUM 100 MG CAP PO PRN ×2 (00:14→09:06)
[2021-12-19 12:17] LABS: CALCIUM 7.9 mg/dL (8.4-10.2); CREATININE, SERUM 0.58 mg/dL (0.72-1.25)
[2021-12-19] MEDS ORDERED: POTASSIUM CHLORIDE 10MEQ EA PO ONE (14:00)
[2021-12-19] MEDS: SENNA-S TABLET PO SCH (16:28)
[2021-12-20] VITALS: BP 116/82
[2021-12-20 04:00] VITALS: BP 115/81
[2021-12-20] MEDS: SODIUM CHLORIDE 0.45% 1,000 ML IV SCH (05:14)
[2021-12-20 07:51] VITALS: BP 108/78
[2021-12-20 07:54] VITALS: BP 108/78
[2021-12-20] MEDS: SENNA-S TABLET PO SCH (08:48)
[2021-12-20] MEDS ORDERED: MULTIVITAMINS1 EAC6 PO (10:24)
[2021-12-20] MEDS ORDERED: POTASSIUM CHLORIDE 20 MEQ TAB CR PO ONE (11:00)
[2021-12-20 11:32] VITALS: BP 105/78
[2021-12-20] MEDS ORDERED: ONDANSETRON HCL 4 MG ORAL DISINTEGRATING TAB PO PRN (15:00)
[2021-12-20 15:52] VITALS: BP 106/72
== END 2021-12-20 16:24 | disposition home or self-care (01) | DRG 640 ==
LOC: ER 22:05 → ERHOLD 12-16 01:32 → MED/SURG3 12-16 02:29
PROVIDERS: ADMIT Internal Medicine; ATTEND Internal Medicine
DX: E87.0 Hyperosmolality and hypernatremia (principal); G93.41 Metabolic encephalopathy; R64 Cachexia; N39.0 Urinary tract infection, site not specified; Z68.1 Body mass index [BMI] 19.9 or less, adult; R62.7 Adult failure to thrive; R33.9 Retention of urine, unspecified; E03.9 Hypothyroidism, unspecified; E86.0 Dehydration; F03.90 Unspecified dementia, unspecified severity, without behavioral disturbance, psychotic disturbance, mood disturbance, and anxiety
CPT/HCPCS: 36415; 70450; 71045; 74230; 80048; 80053; 81001; 82550; 82553; 83605; 83735; 84100; 84132; 84295; 84484; 85025; 87040; 87086; 93005; 96361; 99251; 99284; J0696; J2543; J3480; J7030